=== PATIENT | male | born 1950 | race Two or more races ===

== ENCOUNTER 2024-11-01 08:30 | Emergency (ER) | payer MEDICARE, MEDICAID, SELFPAY ==
[2024-11-01 08:38] VITALS: BP 151/75; PULSE 67; RESP 16; TEMP 36.5; O2SAT 96; BMI 26.9
--- NOTE | 2024-11-01 09:22 | XR_ITS ---
Examination: CT abdomen and pelvis without contrast. Coronal 3-D reconstructions. Sagittal 2-D reconstructions. Date and time of exam:November 01, 2024 1011 hrs. Indication: Onset of right flank pain today CTDI: vol (mGy): 724 DLP: (mGycm): 473 Technique: Axial images of the abdomen have been obtained, 3 mm slice thickness Intravenous contrast material has not been administered. Low dose protocols were performed. One or more of the following dose reduction techniques were used; automated exposure control, adjustment of the mA and/or KV according to patient size, use of iterative reconstruction technique. Findings: Heart failure with enlarged cardiac contour vascular congestion pulmonary edema and large bilateral pleural effusions. No focal liver or splenic lesions Absent gallbladder No pancreatic mass Moderate bilateral renal parenchymal scar formation with perinephric stranding. No hydronephrosis or ureteral calculi. Normal appendix. No bowel obstruction Marked abnormal thickening of urinary bladder, differential would include cystitis, early bladder cancer not excluded Severe osteopenia. Impression: [id number] heart failure Moderate bilateral renal parenchymal scar formation Perinephric stranding consistent with urinary tract infection Marked abnormal thickening of the urinary bladder wall, differential would include cystitis, early bladder carcinoma not excluded, clinical correlation advised
--- NOTE | 2024-11-01 09:23 | XR_ITS ---
Examination: CT lumbar spine without intravenous contrast, without contrast. 2-D sagittal reconstructions. 2-D coronal reconstructions. 3-D reconstructions. Date and time of exam:November 01, 2024 1010 hrs. Indications: Onset back pain today CTDI: vol (mGy):19.3 DLP: (mGycm):617 Technique: Multiple 1.25 mm axial sections of the lumbar spine without intravenous contrast have been obtained. 2-D sagittal and coronal reconstructions have been obtained. 3-D reconstructions have been obtained. Low dose protocols were performed. One or more of the following dose reduction techniques were used; automated exposure control, adjustment of the mA and/or KV according to patient size, use of iterative reconstruction technique. Findings: Immediately Moderate to advanced degenerative disc disease L2-L3, L3-L4, L4-L5. Schmorl's node upper endplate L2 L5-S1 6 mm calcified central lumbar disc bulge L4-L5 4 mm central lumbar disc bulge with significant bilateral neural foraminal stenosis. L3-L4 3 mm central lumbar disc bulge L2-L3 no disc protrusion L1-L2 no disc protrusion Impression: Moderate to advanced degenerative disc disease L2-L3, L3-L4, L4-L5 L5-S1 6 mm calcified central lumbar disc bulge L4-L5 4 mm central lumbar disc bulge with advanced bilateral L4 ganglionic compression. L3-L4 3 mm central lumbar disc bulge
[2024-11-01 09:43] LABS: Collection Type, Urine Clean Catch
[2024-11-01 09:49] LABS: Basophils % (Auto) 1 % (0-2.5); Eosinophils # (Auto) 0.2 Thou/mm3 (0.0-0.5); Eosinophils % (Auto) 4 % (0-10); Hematocrit 32.1 % (41.0-53.0); Hemoglobin 10.7 g/dL (13.5-16.0); Immature Granulocytes % (Auto) 0 % (0-0); Immature Granulocytes Auto 0.01 Thou/mm3 (0.00-0.00); Lymphocytes # (Auto) 0.9 Thou/mm3 (1.0-4.8); Lymphocytes % (Auto) 17 % (10-50); Mean Corpuscular HGB Conc 33.3 g/dl (31.0-37.0); Mean Corpuscular Hemoglobin 31.1 pg (25.0-35.0); Mean Corpuscular Volume 93 fL (80-100); Monocytes # (Auto) 0.6 Thou/mm3 (0.0-0.8); Monocytes % (Auto) 11 % (0-12); Neutrophils # (Auto) 3.6 Thou/mm3 (1.8-7.7); Neutrophils % (Auto) 67 % (37-80); Nucleated Red Blood Cell % 0 /100 WBC (0); Platelet Count 153 Thou/mm3 (140-440); RDW Standard Deviation 48.6 fL (35.1-43.9); Red Blood Count 3.44 Miln/mm3 (4.50-5.90); White Blood Count 5.4 Thou/mm3 (3.8-10.6)
[2024-11-01 09:50] LABS: Bilirubin,Urine Negative (Negative); Blood,Urine 1+ (Negative); Clarity,Urine Clear (Clear/Hazy); Color,Urine Lt-Yellow (Lt Yel-Yel); Glucose, Urine 2+ (Negative); Hyaline Casts,Urine < 1 /hpf (0-1); Ketones,Urine Negative (Negative); Leukocyte Esterase,Urine Positive (Negative); Nitrite,Urine Negative (Negative); PH,Urine 8.5 (5.0-7.0); Protein,Urine 3+ (Neg - Trace); RBC,Urine 25 /hpf (0-3); Specific Gravity,Urine 1.009 (1.001-1.035); Squamous Epithelial Cell,Urine < 1 /hpf (0-5); Urobilinogen,Urine Negative mg/dL (0.0-1.0); WBC,Urine 25 /hpf (0-5)
[2024-11-01 09:52] LABS: Culture Indicated,Urine Yes
[2024-11-01 10:25] LABS: Alanine Aminotransferase 7 U/L (10-49); Albumin, Serum 4.2 gm/dL (3.4-4.8); Albumin/Globulin Ratio 1.4 (1.2-2.2); Anion Gap 10 (7-16); Aspartate Amino Transferase 13 U/L (0-34); BUN/Creatinine Ratio 4 Ratio (12-20); Bilirubin,Total 0.3 mg/dL (0.3-1.2); Blood Urea Nitrogen 21 mg/dL (9-23); Calcium 9.6 mg/dL (8.3-10.6); Calcium (Corrected) 9.6 mg/dL (8.5-10.1); Chloride 95 mMol/L (98-107); Estimated Creatinine Clearance 9.9 mL/min (>60); Globulin 3.1 gm/dL (2.3-3.5); Glucose 127 mg/dL (74-106); Osmolality,Calculated 278 (275-295); Potassium 3.7 mMol/L (3.4-5.1); Sodium 137 mMol/L (136-145); Total Protein 7.3 gm/dL (5.7-8.2); eGFR 9 See Note
[2024-11-01 10:37] LABS: Alkaline Phosphatase 73 U/L (46-116)
--- NOTE | 2024-11-01 11:36 | PD.EDABDPN ---
ED Abdominal Pain RME/HPI General Chief Complaint: Back Pain/Injury Stated complaint: NEEDS SCAN OF KIDNEYS Time seen by provider: 11/01/24 08:33 Arrival date/time: 11/01/24 08:30 RME / HPI RME / HPI narrative: This section includes all my notes and documentations, including HPI, PE, and ED course. Graham Mcdonald MD HPI: 74-year-old male here to be evaluated with several days of left-sided pain. He has trouble localizing the pain, left sided lower back versus left flank pain. Equivocal about radiation of the pain into the left leg. No numbness or tingling. No paralysis. No loss of control of bladder or bowels. No saddle numbness. No other complaints. ROS: All negative except as documented in HPI. Physical Exam: General: Alert and oriented. No acute distress. Eyes: Conjunctivae and lids clear. ENT: No nasal congestion. Neck: Supple. Heart: RRR. Lungs: No respiratory distress. Good air movement. No rhonchi, wheezing, rales. Abdomen: Soft and nontender. Normal bowel sounds. No distension. No rebound or guarding. Back: No CVA tenderness. Skin: Warm and dry. Neuro: Alert and oriented X 3. No peripheral motor deficits. I reviewed all diagnostic test results. My review of the lumbar spine CT report is: Moderate to advanced degenerative disc disease L2-L3, L3-L4, L4-L5. L5-S1 6 mm calcified central lumbar disc bulge. L4-L5 4 mm central lumbar disc bulge with advanced bilateral L4 ganglionic compression. L3-L4 3 mm central lumbar disc bulge. Blood tests remarkable for Cr 6.0, patient is a dialysis patient. UA showed leukocyte esterase on RBC and WBC. At this point, diagnoses include lumbar spinal stenosis and UTI. Prescribed ABX and pain medications and recommended more outpatient workup. Based on my best medical judgment, made decision no further evaluation or treatment indicated at this time. Patient understands and agrees to the discharge instructions customized and printed, see below. Discharge instructions from Dr. Mcdonald: 1. After evaluation, you have UTI (early kidney infection).? Take cefdinir to kill the germs causing the infection.? Increase oral fluid to flush it out.? Maintain clear urine.? If dark or yellow, increase oral fluid. 2. You also have severe disc bulgings and herniations. They are compressing the nerves causing your left sided low back pain. --Despite the pain, try to resume your normal chores and activities.? Because inactivity is terrible for this condition.? And activity won?t make your condition worse.? Use a cane of stick in your hand to help stand and walk.? --Tylenol with codeine and lidocaine patches as needed.? --When resting and sleeping, try position (with your knees to your chest and bending forward).? This can take some pressure off the nerves and help your pain. --Apply ice or heat if helpful. 3. See a private doctor (outside the ER) on 11/04/24 for recheck and further care. Ask to review all test results and official radiology reports, to make sure you receive all necessary follow-ups and monitoring, including your final urine culture results. For your back pain, ask to help you get more care not available here in the ER.? Such as MRI imaging.? Some choose to have surgery for your condition. But you need to have MRI imaging to confirm the diagnosis and assess the severity to get the best treatment. 4. Seek immediate medical care with fever, paralysis in your foot, losing control of your bladder or bowels, saddle numbness (anal numbness), or with any concerns.?? Graham Mcdonald MD Related Data Home Medications ?Medication ?Instructions ?Recorded ?Confirmed clonidine HCl 0.1 mg tablet 0.2 mg PO TID 02/26/19 12/19/20 cetirizine 10 mg tablet 10 mg PO QDAY 12/18/20 12/19/20 mirtazapine 30 mg tablet 30 mg PO HS 12/18/20 12/19/20 tobramycin 0.3 %-dexamethasone 0.1 1 drop ophthalmic (eye) 12/18/20 12/19/20 % eye drops,suspension (TobraDex) USEASDIRECTD Previous Rx's ?Medication ?Instructions ?Recorded acetazolamide 500 mg 500 mg PO Q12H #20 caps 03/19/19 capsule,extended release acetaminophen 300 mg-codeine 30 mg 2 tab PO Q8H PRN pain #20 tabs 11/01/24 tablet cefdinir 300 mg capsule 300 mg PO BID #14 caps 11/01/24 lidocaine 5 % topical patch 2 patch topical QDAY PRN pain #30 11/01/24 (Lidoderm) ea Allergies Allergy/AdvReac Type Severity Reaction Status Date / Time No Known Allergies Allergy Verified 11/01/24 08:34 Course Quality Measures none Orders Category Date Time Status CT abdomen pelvis wo con Stat Exams 11/01/24 09:[address] lumbar spine wo con Stat Exams 11/01/24 09:23 Completed CBC Stat Lab 11/01/24 09:40 Completed CMP [Comprehensive Metabolic Panel] Stat Lab 11/01/24 09:40 Completed Magnesium Stat Lab 11/01/24 09:40 Completed UA, C/S IF [Urinalysis, C/S if Indicated] Stat Lab 11/01/24 09:36 Completed Urine Culture Stat Lab 11/01/24 09:36 Completed Vital Signs Vital signs: Vital Signs Temperature 97.7 F 11/01/24 08:38 Pulse Rate 67 11/01/24 08:38 Respiratory Rate 16 11/01/24 08:38 Blood Pressure 151/75 H 11/01/24 08:38 Pulse Oximetry (%) 96 11/01/24 08:38 Oxygen Delivery Method Room Air 11/01/24 08:38 Abdominal Pain MDM Patient data External records reviewed:: [facility] previous records Clinical information provided by:: patient Social determinants that could affect healthcare access:: none Patient has the following chronic illnesses:: ESRD How is presenting disease/condition affected by chronic disease/condition?: uneffected by Evaluation data The following diagnostics were reviewed and interpreted by me:: lab results and radiology exam(s) Lab and/or radiology exams considered but not ordered:: None Interpretation Summary: Lumbar spinal stenosis and UTI Medications / Prescriptions Medications or Prescriptions considered but not ordered:: None Medication administrations:: None Consultations Consultation(s) initiated? (list below): No Diagnosis Differential diagnosis abdominal pain: acute appendicitis, calculus of kidney, constipation, diverticulitis, pancreatitis, small bowel obstruction and other (Lumbar spine fracture, lumbar sprain, spinal stenosis) Most likely diagnosis given after review of the tests above:: Lumbar spinal stenosis and UTI Admission Indicated Admission indicated?: not indicated Explain why admission is indicated or not indicated:: There is no indication for admission. Admission Request Was there a request for admission?: No Disposition Plan Disposition Plan: Discharge Discharge Attestation Discharge Attestation: The patient and all family members were given an opportunity to ask questions and understood the discharge instructions. Discharge instructions specifically effects, indications for sooner follow up or return to the emergency department, and the expected course of current diagnosis. Patient condition: Stable Discharge Plan Plan Patient Disposition: HOME (Self Care) Prescriptions/Referrals Prescriptions/Med Rec: New acetaminophen-codeine 300-30 mg tablet 2 tab PO Q8H MDD 6 PRN (Reason: pain) Qty: 20 0RF cefdinir 300 mg capsule 300 mg PO BID Qty: 14 0RF lidocaine [Lidoderm] 5 % adhesive patch,medicated 2 patch topical QDAY PRN (Reason: pain) Qty: 30 0RF Rx Instructions: leave on most painful area for up to 12 hrs No Action clonidine HCl 0.1 mg Tablet 0.2 mg PO TID Rx Instructions: systolic greater than 170 acetazolamide 500 mg capsule, extended release 500 mg PO Q12H Qty: 20 0RF cetirizine 10 mg Tablet 10 mg PO QDAY mirtazapine 30 mg Tablet 30 mg PO HS tobramycin-dexamethasone [TobraDex] 0.3-0.1 % drops,suspension 1 drop OPHTHALMIC USEASDIRECTD Rx Instructions: EVERY 3 DAYS Referrals: Henri Bangura MD [Primary Care Provider] - In 1 week Problem List Clinical Impression: UTI (urinary tract infection), Lumbar disc herniation Patient/Caregiver Discharge Instructions Discharge Activity: activity as tolerated Education Materials: ED Pyelonephritis, Male (Adult), ED Herniated Intervertebral Disk Additional Instructions: Discharge instructions from Dr. Mcdonald: 1. After evaluation, you have UTI (early kidney infection).? Take cefdinir to kill the germs causing the infection.? Increase oral fluid to flush it out.? Maintain clear urine.? If dark or yellow, increase oral fluid. 2. You also have severe disc bulgings and herniations. They are compressing the nerves causing your left sided low back pain. --Despite the pain, try to resume your normal chores and activities.? Because inactivity is terrible for this condition.? And activity won?t make your condition worse.? Use a cane of stick in your hand to help stand and walk.? --Tylenol with codeine and lidocaine patches as needed.? --When resting and sleeping, try position (with your knees to your chest and bending forward).? This can take some pressure off the nerves and help your pain. --Apply ice or heat if helpful. 3. See a private doctor (outside the ER) on 11/04/24 for recheck and further care. Ask to review all test results and official radiology reports, to make sure you receive all necessary follow-ups and monitoring, including your final urine culture results. For your back pain, ask to help you get more care not available here in the ER.? Such as MRI imaging.? Some choose to have surgery for your condition. But you need to have MRI imaging to confirm the diagnosis and assess the severity to get the best treatment. 4. Seek immediate medical care with fever, paralysis in your foot, losing control of your bladder or bowels, saddle numbness (anal numbness), or with any concerns.?? Instrucciones de reid del Dr. Mcdonald: 1. Despu?s de la evaluaci?n, tiene UTI (infecci?n renal temprana). [place] cefdinir para matar los g?rmenes que causan la infecci?n. Aumente la cantidad de l?quido oral para eliminarlo. Mantenga la orina carmita. Si es oscura o amarilla, aumente la cantidad de l?quido oral. 2. Tambi?n tiene hernias y protuberancias discales graves. Est?n comprimiendo los nervios que le causan dolor lumbar del lado damion. --A pesar del dolor, trate de reanudar inez tareas y actividades normales. Porque la inactividad es terrible para esta afecci?n. Y la actividad no empeorar? pace afecci?n. Use un carine?n en la mano para ayudarse a pararse y caminar. --Tylenol con parches de code?na y lidoca?na seg?n sea necesario. --Al descansar y dormir, intente la posici?n (con las rodillas en el pecho e inclin?ndose hacia adelante). [place] puede aliviar un poco la presi?n sobre los nervios y aliviar el dolor. --Aplique hielo o calor si es ?til. 3. Visite a un m?dico privado (fuera de la lam de emergencias) el 04/11/24 para un nuevo control y m?s atenci?n. Pida revisar todos los resultados de las pruebas y los informes oficiales de radiolog?a, para asegurarse de recibir todos los seguimientos y monitoreo necesarios, incluidos los resultados finales de pace cultivo de orina. Para pace dolor de espalda, pida ayuda para obtener m?s atenci?n que no est? disponible aqu? en la lam de emergencias. Ashley im?genes de resonancia magn?senthil. Algunas personas optan por hacerse henry cirug?a para pace afecci?n. Ivonne necesita hacerse henry imagen de resonancia magn?senthil para confirmar el diagn?stico y evaluar la gravedad para obtener el mejor tratamiento. 4. Busque atenci?n m?dica inmediata si tiene fiebre, par?lisis en el pie, p?rdida de control de la vejiga o los intestinos, entumecimiento en forma de silla de montar (entumecimiento anal) o si tiene alguna inquietud. Print Language: Tajik Stand Alone Forms: [employer] Info., Patient Portal Info Letter
== END 2024-11-01 11:50 | disposition home or self-care (01) ==
PROVIDERS: Emergency Provider Emergency Medicine; PCP Family Medicine
DX: N39.0 Urinary tract infection, site not specified (principal); M51.26 Other intervertebral disc displacement, lumbar region; M51.362 Other intervertebral disc degeneration, lumbar region with discogenic back pain and lower extremity pain; M51.372 Other intervertebral disc degeneration, lumbosacral region with discogenic back pain and lower extremity pain; M48.061 Spinal stenosis, lumbar region without neurogenic claudication; G95.29 Other cord compression; N18.6 End stage renal disease; Z99.2 Dependence on renal dialysis
CPT/HCPCS: 36415; 72131; 74176; 80053; 81001; 83735; 85025; 87086; 99284

== ENCOUNTER 2024-11-30 09:20 | Emergency (ER) | payer MEDICARE, MEDICAID, SELFPAY ==
[2024-11-30 09:21] VITALS: BMI 25.4
[2024-11-30 09:54] VITALS: BP 201/104; PULSE 79; RESP 19; TEMP 36.7; O2SAT 98
[2024-11-30 09:56] VITALS: BMI 25.4
--- NOTE | 2024-11-30 10:01 | XR_ITS ---
Examination: Abdomen AP single view Technique: AP portable supine abdomen, single view Exam date and time: November 30, 2024 1038 hours INDICATIONS: Constipation beginning 8 days ago. FINDINGS: Large amounts of stool throughout the colon No obstruction. No free air. Moderate to advanced bilateral hip osteoarthritis IMPRESSION: Large amounts of stool throughout the colon
--- NOTE | 2024-11-30 10:02 | PD.EDRME ---
Rapid Medical Screening Exam RME Arrival date/time: 11/30/24 09:20 74-year-old male with a history of an abdominal hernia repair, type 2 diabetes on dialysis, hypertension presents to the emergency room with a chief complaint of generalized 7 out of 10 abdominal pain, and not having any bowel movements for the last 8 days. I have greeted and performed a focused initial assessment of this patient. A comprehensive ED assessment and evaluation of the patient, analysis of all test results, and completion of the medical decision making process will be conducted by additional ED providers. Chief Complaint: Abdominal Pain Time Seen by Provider: 11/30/24 09:44 Vital signs: Vital Signs Temperature 98.0 F 11/30/24 09:54 Pulse Rate 79 11/30/24 09:54 Respiratory Rate 19 11/30/24 09:54 Blood Pressure 201/104 H 11/30/24 09:54 Pulse Oximetry (%) 98 11/30/24 09:54 Oxygen Delivery Method Room Air 11/30/24 09:54 Vital signs reviewed by provider: Yes
[2024-11-30 10:29] LABS: Basophils # (Auto) 0.1 Thou/mm3 (0.0-0.2); Basophils % (Auto) 1 % (0-2.5); Eosinophils # (Auto) 0.4 Thou/mm3 (0.0-0.5); Eosinophils % (Auto) 7 % (0-10); Hematocrit 37.2 % (41.0-53.0); Hemoglobin 12.7 g/dL (13.5-16.0); Immature Granulocytes % (Auto) 0 % (0-0); Immature Granulocytes Auto 0.01 Thou/mm3 (0.00-0.00); Lymphocytes # (Auto) 0.9 Thou/mm3 (1.0-4.8); Lymphocytes % (Auto) 15 % (10-50); Mean Corpuscular HGB Conc 34.1 g/dl (31.0-37.0); Mean Corpuscular Hemoglobin 31.1 pg (25.0-35.0); Mean Corpuscular Volume 91 fL (80-100); Monocytes # (Auto) 0.6 Thou/mm3 (0.0-0.8); Monocytes % (Auto) 10 % (0-12); Neutrophils # (Auto) 4.1 Thou/mm3 (1.8-7.7); Neutrophils % (Auto) 67 % (37-80); Nucleated Red Blood Cell % 0 /100 WBC (0); Platelet Count 173 Thou/mm3 (140-440); Red Blood Count 4.08 Miln/mm3 (4.50-5.90); White Blood Count 6.1 Thou/mm3 (3.8-10.6)
[2024-11-30 10:43] LABS: Collection Type, Urine Clean Catch
[2024-11-30 10:44] LABS: Partial Thromboplastin Time 22.8 Seconds (22.0-36.0); Prothrombin Time 10.8 Seconds (9.0-12.2)
[2024-11-30 10:46] LABS: Alanine Aminotransferase 39 U/L (10-49); Albumin, Serum 4.4 gm/dL (3.4-4.8); Albumin/Globulin Ratio 1.3 (1.2-2.2); Alkaline Phosphatase 152 U/L (46-116); Anion Gap 10 (7-16); Aspartate Amino Transferase 26 U/L (0-34); BUN/Creatinine Ratio 4 Ratio (12-20); Bilirubin,Total 0.3 mg/dL (0.3-1.2); Blood Urea Nitrogen 28 mg/dL (9-23); Calcium 10.1 mg/dL (8.3-10.6); Calcium (Corrected) 10.1 mg/dL (8.5-10.1); Carbon Dioxide 30.5 mMol/L (20.0-31.0); Chloride 93 mMol/L (98-107); Creatinine (Component) 7.7 mg/dL (0.6-1.3); Estimated Creatinine Clearance 7.7 mL/min (>60); Globulin 3.5 gm/dL (2.3-3.5); Glucose 133 mg/dL (74-106); Lipase 36 U/L (12-53); Osmolality,Calculated 273 (275-295); Potassium 4.3 mMol/L (3.4-5.1); Sodium 133 mMol/L (136-145); Total Protein 7.9 gm/dL (5.7-8.2); eGFR 7 See Note
[2024-11-30 10:47] LABS: Bilirubin,Urine Negative (Negative); Blood,Urine 1+ (Negative); Clarity,Urine Clear (Clear/Hazy); Color,Urine Lt-Yellow (Lt Yel-Yel); Glucose, Urine 2+ (Negative); Ketones,Urine Negative (Negative); Leukocyte Esterase,Urine Positive (Negative); Nitrite,Urine Negative (Negative); Protein,Urine 3+ (Neg - Trace); RBC,Urine 16 /hpf (0-3); Specific Gravity,Urine 1.007 (1.001-1.035); Squamous Epithelial Cell,Urine < 1 /hpf (0-5); Urobilinogen,Urine Negative mg/dL (0.0-1.0); WBC,Urine 21 /hpf (0-5)
--- NOTE | 2024-11-30 16:14 | PD.EDADULT ---
ED General RME/HPI General Chief complaint: Abdominal Pain Stated complaint: NO BM 8 DAYS, ABD PAIN, WANTS X-RAY Time Seen by Provider: 11/30/24 09:44 Arrival date/time: 11/30/24 09:20 CC: Constipation HPI ongoing for the past 8 days patient is a dialysis patient who denies any fever chills shortness of breath or difficulty breathing. Tried, red pills for 2 days which did not work. Did not try any enemas. 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 I have greeted and performed a focused initial assessment of this patient. A comprehensive ED assessment and evaluation of the patient, analysis of all test results, and completion of the medical decision making process will be conducted by additional ED providers. Related Data Home Medications ?Medication ?Instructions ?Recorded ?Confirmed clonidine HCl 0.1 mg tablet 0.2 mg PO TID 02/26/19 12/19/20 cetirizine 10 mg tablet 10 mg PO QDAY 12/18/20 12/19/20 mirtazapine 30 mg tablet 30 mg PO HS 12/18/20 12/19/20 tobramycin 0.3 %-dexamethasone 0.1 1 drop ophthalmic (eye) 12/18/20 12/19/20 % eye drops,suspension (TobraDex) USEASDIRECTD Previous Rx's ?Medication ?Instructions ?Recorded acetazolamide 500 mg 500 mg PO Q12H #20 caps 03/19/19 capsule,extended release acetaminophen 300 mg-codeine 30 mg 2 tab PO Q8H PRN pain #20 tabs 11/01/24 tablet cefdinir 300 mg capsule 300 mg PO BID #14 caps 11/01/24 lidocaine 5 % topical patch 2 patch topical QDAY PRN pain #30 11/01/24 (Lidoderm) ea polyethylene glycol 3350 17 4 g PO QDAY #238 grams 11/30/24 gram/dose oral powder (Miralax) Allergies Allergy/AdvReac Type Severity Reaction Status Date / Time No Known Allergies Allergy Verified 11/30/24 09:24 Review of Systems Review of Systems Narrative Review of Systems: GEN: No fever, no chills, no weight loss EYES: No discharge, no visual changes, no pain HEENT: No ear pain, no congestion, no sore throat PULM: No shortness of breath, no cough, no congestion CV: No chest pain, no dyspnea on exertion, no palpitations GI: No nausea, no vomiting, no diarrhea, no pain, + constipation : No frequency, no urgency, no dysuria MUSC/SKEL: No joint pain, no back pain SKIN: No rash PSYCH: No hallucinations, no depression HEME/LYMPH: No easy bleeding or bruising tendencies NEURO: No weakness, no headache Past Medical History Past Medical History NEUROLOGIC: Negative Neurological Disorders or Seizures CARDIAC: Positive Cardiac Disorders and Hypertension; Negative Hypercholesterolemia or Congestive Heart Failure RESPIRATORY: Negative Chronic Obstructive Pulmonary Disease (COPD) GASTROINTESTINAL: Negative Gastrointestinal Disorders or Hepatitis GENITOURINARY: Positive Renal Disease and Dialysis MUSCULOSKELETAL: Positive Musculoskeletal Disorders and Arthritis ENT: Positive Cataracts ENDOCRINE: Positive Endocrine Disorders and Diabetes Mellitus Type 2; Negative Diabetes Mellitus Type 1 HEMATOLOGIC: Negative Anemia or Clotting Problems OTHER HISTORY: Positive Falls; Negative Blood Transfusions, Blood Transfusion Reaction, Anesthesia Reactions, MRSA, Chicken Pox or Cancer Family History FAMILY HISTORY: Negative Family Cardiac Disorders Surgical History SURGICAL: Positive Arthroscopy; Negative Cardiac Surgery, Endocrine Surgery or Vasectomy Social History SMOKING STATUS: Never smoker SUBSTANCE USE: does not use ED Exam Narrative Physical exam: [General: Not in any acute distress Head normocephalic HEENT: Within acceptable limits Neck is supple nontender Chest equal chest rise nontender to palpation Respiratory: Clear to auscultation no wheezes crackles or rubs CV: Rate rhythm is regular no murmurs rubs or clicks Abdomen is soft nontender no masses positive bowel sounds all 4 quadrants Back: No CVA tenderness no spinous process tenderness from cervical spine thoracic and lumbar spine Skin: Intact no petechiae rash induration ulceration or crepitus Extremities: Moving all extremity against resistance cap refill less than 2 seconds neurosensory intact Neuro: Awake alert oriented x3 Glascow coma 15 no focal deficits] Course Quality Measures none Orders Category Date Time Status XR abdomen 1V Stat Exams 11/30/24 10:01 Completed CBC Stat Lab 11/30/24 10:17 Completed CMP [Comprehensive Metabolic Panel] Stat Lab 11/30/24 10:17 Completed Lipase Stat Lab 11/30/24 10:17 Completed PT [Prothrombin Time with INR] Stat Lab 11/30/24 10:17 Completed PTT [Partial Thromboplastin Time] Stat Lab 11/30/24 10:17 Completed UA [Urinalysis] Stat Lab 11/30/24 10:20 Completed Urine Culture Stat Lab 11/30/24 10:20 Received Vital Signs Vital signs: Vital Signs Temperature 98.0 F 11/30/24 09:54 Pulse Rate 79 11/30/24 09:54 Respiratory Rate 19 11/30/24 09:54 Blood Pressure 201/104 H 11/30/24 09:54 Pulse Oximetry (%) 98 11/30/24 09:54 Oxygen Delivery Method Room Air 11/30/24 09:54 [facility] Patient data External records reviewed:: [facility] previous records Clinical information provided by:: patient and spouse Social determinants that could affect healthcare access:: none Patient has the following chronic illnesses:: ESRD dialysis How is presenting disease/condition affected by chronic disease/condition?: uneffected by Evaluation data The following diagnostics were reviewed and interpreted by me:: lab results and radiology exam(s) Lab and/or radiology exams considered but not ordered:: CBC shows a WBC of 6.1 H&H of 12.7 and 37.2 no thrombocytopenia CMP shows a sodium 133 BUN of 28 creatinine of 7.7 glucose of 133 no transaminitis or T. bili elevation Urine is negative for acute UTI Single view abdomen shows moderate amount of stool. Interpretation Summary: Constipation without obstipation Medications Medications considered but not ordered:: None Medication administrations:: None Consultations Consultation(s) initiated? (list below): No Diagnosis Differential Diagnosis ED Complaint MDM: Constipation obstipation ileus Most likely diagnosis given after review of the tests above:: Constipation Admission Indicated Admission indicated?: not indicated Explain why admission is indicated or not indicated:: Stable for outpatient follow-up Admission Request Was there a request for admission?: No Disposition Plan Disposition Plan: Discharge Discharge Attestation Discharge Attestation: The patient and all family members were given an opportunity to ask questions and understood the discharge instructions. Discharge instructions specifically effects, indications for sooner follow up or return to the emergency department, and the expected course of current diagnosis. Patient condition: Stable Medical Decision Making Differential Diagnosis Differential Diagnosis: Constipation obstipation ileus Lab Data 11/30/24 10:17 11/30/24 10:17 Labs: Lab Results 11/30/24 11/30/24 Range/Units 10:17 10:20 WBC 6.1 (3.8-10.6) Thou/mm3 RBC 4.08 L (4.50-5.90) Miln/mm3 Hgb 12.7 L (13.5-16.0) g/dL Hct 37.2 L (41.0-53.0) % MCV 91 (80-100) fL MCH 31.1 (25.0-35.0) pg MCHC 34.1 (31.0-37.0) g/dl RDW Std Deviation 48.0 H (35.1-43.9) fL Plt Count 173 (140-440) Thou/mm3 Neut % (Auto) 67 (37-80) % Lymph % (Auto) 15 (10-50) % Sutter % (Auto) 10 (0-12) % Eos % (Auto) 7 (0-10) % Baso % (Auto) 1 (0-2.5) % Neut # (Auto) 4.1 (1.8-7.7) Thou/mm3 Lymph # (Auto) 0.9 L (1.0-4.8) Thou/mm3 Sutter # (Auto) 0.6 (0.0-0.8) Thou/mm3 Eos # (Auto) 0.4 (0.0-0.5) Thou/mm3 Baso # (Auto) 0.1 (0.0-0.2) Thou/mm3 Immature Gran # (Auto) 0.01 H (0.00-0.00) Thou/mm3 Absolute Nucleated RBC 0.00 (0.00-0.00) Thou/mm3 Immature Gran % 0 (0-0) % Nucleated RBC % 0 (0) /100 WBC PT 10.8 (9.0-12.2) Seconds INR 1.0 (0.9-1.3) APTT 22.8 (22.0-36.0) Seconds Sodium 133 L (136-145) mMol/L Potassium 4.3 (3.4-5.1) mMol/L Chloride 93 L (98-107) mMol/L Carbon Dioxide 30.5 (20.0-31.0) mMol/L Anion Gap 10 (7-16) BUN 28 H (9-23) mg/dL Creatinine 7.7 H* (0.6-1.3) mg/dL Estim Creat Clear Calc 7.7 L (>60) mL/min eGFR 7 L* (60 - ) See Note BUN/Creatinine Ratio 4 L (12-20) Ratio Glucose 133 H (74-106) mg/dL Calculated Osmolality 273 L (275-295) Calcium 10.1 (8.3-10.6) mg/dL Corrected Calcium 10.1 (8.5-10.1) mg/dL Total Bilirubin 0.3 (0.3-1.2) mg/dL AST 26 (0-34) U/L ALT 39 (10-49) U/L Alkaline Phosphatase 152 H (46-116) U/L Total Protein 7.9 (5.7-8.2) gm/dL Albumin 4.4 (3.4-4.8) gm/dL Globulin 3.5 (2.3-3.5) gm/dL Albumin/Globulin Ratio 1.3 (1.2-2.2) Lipase 36 (12-53) U/L Ur Collection Type Clean Catch Urine Color Lt-Yellow (Lt Yel-Yel) Urine Clarity Clear (Clear/Hazy) Urine pH 8.0 H (5.0-7.0) Ur Specific [place] 1.007 (1.001-1.035) Urine Protein 3+ A (Neg - Trace) Urine Glucose (UA) 2+ A (Negative) Urine Ketones Negative (Negative) Urine Blood 1+ A (Negative) Urine Nitrite Negative (Negative) Urine Bilirubin Negative (Negative) Urine Urobilinogen (Auto) Negative (0.0-1.0) mg/dL Ur Leukocyte Esterase Positive (Negative) Urine RBC 16 H (0-3) /hpf Urine WBC 21 H (0-5) /hpf Ur Squamous Epith Cells < 1 (0-5) /hpf Urine Bacteria None (None) Discharge Plan Plan Patient Disposition: HOME (Self Care) Patient condition on transfer: Stable Prescriptions/Referrals Prescriptions/Med Rec: New polyethylene glycol 3350 [Miralax] 17 gram/dose powder 4 g PO QDAY Qty: 238 0RF No Action clonidine HCl 0.1 mg Tablet 0.2 mg PO TID Rx Instructions: systolic greater than 170 acetazolamide 500 mg capsule, extended release 500 mg PO Q12H Qty: 20 0RF cetirizine 10 mg Tablet 10 mg PO QDAY mirtazapine 30 mg Tablet 30 mg PO HS tobramycin-dexamethasone [TobraDex] 0.3-0.1 % drops,suspension 1 drop OPHTHALMIC USEASDIRECTD Rx Instructions: EVERY 3 DAYS acetaminophen-codeine 300-30 mg tablet 2 tab PO Q8H MDD 6 PRN (Reason: pain) Qty: 20 0RF cefdinir 300 mg capsule 300 mg PO BID Qty: 14 0RF lidocaine [Lidoderm] 5 % adhesive patch,medicated 2 patch topical QDAY PRN (Reason: pain) Qty: 30 0RF Rx Instructions: leave on most painful area for up to 12 hrs Referrals: René Sarah MD [Primary Care Provider] - In 1 week Problem List Clinical Impression: Constipation Patient/Caregiver Discharge Instructions Education Materials: Eating a High-Fiber Diet, ED Constipation (Adult) Additional Instructions: Try a Fleet seminoma. Follow-up with your primary care doctor or your laboratory sampler. If there is worsening of symptoms return the emergency room medially for further evaluation. Print Language: [place]arag[place] Stand Alone Forms: Kiley Award Info., Patient Portal Info Letter PA/JEFFERY Supervising Physician PA/JEFFERY Supervising Physician: Cheko Rose ENP
== END 2024-11-30 16:56 | disposition home or self-care (01) ==
PROVIDERS: Nurse Practitioner Family; Emergency Provider Emergency Medicine; PCP Internal Medicine
DX: K59.00 Constipation, unspecified (principal)
CPT/HCPCS: 36415; 74018; 80053; 81001; 83690; 85025; 85610; 85730; 87086; 99283

== ENCOUNTER 2025-06-10 11:22 | Emergency (ER) | payer MEDICARE, SELFPAY ==
[2025-06-10] VITALS (9 sets, daily range): BP systolic 77–158; BP diastolic 51–87; PULSE 69–79; RESP 16–20; TEMP 36–37.1; O2SAT 91–100; BMI 23.4; BMI 31.9
--- NOTE | 2025-06-10 12:54 | PD.EDEXREM ---
ED Extremity Problem RME/HPI General Chief complaint: Extremity Problem,Nontraumatic Stated complaint: R FOOT PAIN WITH DISCOLORATION Time Seen by Provider: 06/10/25 11:43 Arrival date/time: 06/10/25 11:22 Limitations: no limitations RME / HPI RME / HPI Narrative: DR. RUBALCAVA MAIN ED EVALUATION: 75-year-old male with history of end-stage renal disease on hemodialysis (MWF with winery worker Dr. Carrillo? in [place]) and hypertension who presents to the Emergency Department with bilateral foot pain, right greater than left, ongoing for 8 days. He reports associated nausea and vomiting but denies fever, chills, abdominal pain, chest pain, or generalized weakness. He completed dialysis yesterday. Accompanied by his . Related Data Home Medications ?Medication ?Instructions ?Recorded ?Confirmed clonidine HCl 0.1 mg tablet 0.2 mg PO TID 02/26/19 12/19/20 cetirizine 10 mg tablet 10 mg PO QDAY 12/18/20 12/19/20 mirtazapine 30 mg tablet 30 mg PO HS 12/18/20 12/19/20 tobramycin 0.3 %-dexamethasone 0.1 1 drop ophthalmic (eye) 12/18/20 12/19/20 % eye drops,suspension (TobraDex) USEASDIRECTD Previous Rx's ?Medication ?Instructions ?Recorded acetazolamide 500 mg 500 mg PO Q12H #20 caps 03/19/19 capsule,extended release acetaminophen 300 mg-codeine 30 mg 2 tab PO Q8H PRN pain #20 tabs 11/01/24 tablet cefdinir 300 mg capsule 300 mg PO BID #14 caps 11/01/24 lidocaine 5 % topical patch 2 patch topical QDAY PRN pain #30 11/01/24 (Lidoderm) ea polyethylene glycol 3350 17 4 g PO QDAY #238 grams 11/30/24 gram/dose oral powder (Miralax) Allergies Allergy/AdvReac Type Severity Reaction Status Date / Time No Known Allergies Allergy Verified 06/10/25 11:27 Review of Systems Review of Systems Systems Reviewed: All systems reviewed, normal except as documented Past Medical History Past Medical History CARDIAC: Positive Cardiac Disorders, Myocardial Infarction (x2 6 yrs ago) and Hypertension GENITOURINARY: Positive Renal Disease and Dialysis MUSCULOSKELETAL: Positive Musculoskeletal Disorders, Arthritis and Fractures (clavicle fracture , shoulder left) ENT: Positive Cataracts and Glaucoma ENDOCRINE: Positive Endocrine Disorders and Diabetes Mellitus Type 2 OTHER HISTORY: Positive Falls Surgical History SURGICAL: Positive Arthroscopy Social History SMOKING STATUS: Never smoker SUBSTANCE USE: does not use ALCOHOL: Never ED Exam General Limitations: Present no limitations General appearance: Present alert and in no apparent distress Head Head exam: Present atraumatic, normocephalic and normal inspection Eye Eye exam: Present normal appearance, PERRL and EOMI ENT ENT exam: Present normal exam, normal oropharynx and mucous membranes moist Neck Neck exam: Present normal inspection, full ROM and trachea midline Chest Chest inspection: Present normal inspection and symmetric chest wall rise Respiratory Respiratory exam: Present normal lung sounds bilaterally Cardiovascular Cardiovascular exam: Present regular rate, normal rhythm and normal heart sounds Abdominal Exam Abdominal exam: Present soft; Absent distention, tenderness, guarding, rebound or rigidity Extremities Exam Extremities exam: Present other (Tenderness noted in both feet, most pronounced at the right 5th digit. Right foot shows more discoloration compared to the right. No palpable pulses in the lower extremities, but Doppler was able to detect popliteal flow bilaterally.) Back Exam Back exam: Present normal inspection and full ROM Neurological Exam Neurological exam: Present alert, oriented X3 and CN II-XII intact Psychiatric Psychiatric exam: Present normal affect and normal mood Skin Skin exam: Present warm and dry Course Quality Measures none Orders Category Date Time Status CT Screening NOW Care 06/10/25 13:25 Completed Referral - Core Piler Stat Cons 06/10/25 16:[address] angio LE RT Stat Exams 06/10/25 13:24 Completed XR foot comp RT min 3V Stat Exams 06/10/25 13:26 Completed CBC Stat Lab 06/10/25 13:25 Completed CMP [Comprehensive Metabolic Panel] Stat Lab 06/10/25 13:25 Completed CRP [C-Reactive Protein] Stat Lab 06/10/25 13:25 Completed ESR [Sed Rate (ESR)] Stat Lab 06/10/25 13:25 Completed Hepatitis Acute Panel Stat Lab 06/10/25 13:25 Completed PT [Prothrombin Time with INR] Stat Lab 06/10/25 13:25 Completed Ringers Lactated 500 ml [Lactated Ringers] 500 ml Med 06/10/25 13:27 Discontinued IV 500 mls/hr fentaNYL INJ [Sublimaze Inj] Med 06/10/25 17:04 Discontinued 50 mcg IVP X1 ONE Vital Signs Vital signs: Vital Signs Temperature 98.8 F 06/10/25 12:08 Pulse Rate 69 06/10/25 12:08 Respiratory Rate 18 06/10/25 12:08 Blood Pressure 77/51 L 06/10/25 12:08 Pulse Oximetry (%) 92 L 06/10/25 12:08 Oxygen Delivery Method Room Air 06/10/25 12:08 Extremity Problem MDM Narrative MDM Narrative:: Patient is a 74-year-old male with medical history notable for ESRD, diabetes, hypertension that send emergency primary concerns for right foot pain. Vital signs and exam as listed. Concern for ischemic limb, osteomyelitis, diabetic neuropathy among others. Patient took his blood pressure medication earlier today, presenting with soft blood pressure was 77/51. Patient had dialysis yesterday. Ordered labs, CT angio of the right lower extremity as well as x-ray of the right foot. Labs without leukocytosis, no left shift. Patient hemoglobin is 9.9, patient range is in hemoglobin from 10-12. Patient without any significant metabolic disturbances patient does have a transaminitis, AST 402, ALT 506, alk phos 245, CRP 1.8. Patient does not have any abdominal pain. His pain is all in his right foot. Foot x-ray with severe osteopenia. CT angio of the lower extremity with 90% 90% stenosis right popliteal artery Severe calcification trifurcation arteries below the knee, occlusion of the anterior tibial and main continuation trunk and posterior tibial arteries on the right in the mid to distal portions Initiated transfer for vascular surgery. Discussed case with Dr Diez [facility] surgeon [facility]. No emergent surgical intervention req'd at this time. Recommends that patient call his office to make an appt to be seen this week. Patient updated at bedside. Patient remained HD stable, symptoms well controlled NAD. Alondra Rodrigez am scribing for and in the presence of Dr. Rubalcava. 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 in [place]) and hypertension How is presenting disease/condition affected by chronic disease/condition?: exacerbated by Evaluation data The following diagnostics were reviewed and interpreted by me:: lab results and radiology exam(s) Lab and/or radiology exams considered but not ordered:: none Interpretation Summary: See MDM narrative above. RADIOLOGY Procedure(s): XR foot comp RT min 3V Accession Number(s): [id number] cc: Henri Bangura MD; Bruce Cordon MD; Sheila Rubalcava MD~ Examination: Foot, right, 3 views Technique: AP, oblique, lateral views foot, 3 views Date and time of exam: June 10, 2025, 1344 hrs. Indications: Redness pain and swelling and discoloration this week Findings: Severe osteopenia Soft tissue vascular calcification No jose carlos cortical bone destruction No foreign body Impression: Severe osteopenia No jose carlos cortical bone destruction Dictated By: Bruce Cordon MD Procedure(s): CT angio LE RT Accession Number(s): [id number] cc: Henri Bangura MD; Bruce Cordon MD; Sheila Rubalcava MD~ Examination: CTA right lower extremity with intravenous contrast 2-D reconstructions 3-D reconstructions, vascular Date and time of exam: June 10, 2025, 1458 hrs. Indications: Right foot pain and discoloration beginning 8 days ago CTDI: vol (mGy) 4.40 DLP: (mGycm) 490 Technique: Multiple axial images right lower extremity obtained. 2-D sagittal and coronal reconstructions. 3-D angiographic renderings, 3-D volume renderings, 3D post processing, vascular maximum intensity projections obtained. Contrast administered is 100 cc Isovue-370. Low dose protocols were performed. One or more of the following dose reduction techniques were used; automated exposure control, adjustment of the mA and/or KV according to patient size, use of iterative reconstruction technique. Findings: Right external iliac right common femoral artery calcified but intact Right superficial femoral artery demonstrates heavy calcification 50% stenosis in its midportion axial image 266 Heavy calcification right popliteal artery with 90% stenosis axial image 353 Heavy calcification anterior tibial posterior tibial main continuation trunk on the right Occlusion of the proximal right anterior tibial artery, occlusion of the main continuation trunk and occlusion of the right posterior tibial artery in their mid and distal portions Impression: 90% stenosis right popliteal artery Severe calcification trifurcation arteries below the knee, occlusion of the anterior tibial and main continuation trunk and posterior tibial arteries on the right in the mid to distal portions Dictated By: Bruce Cordon MD Medications / Prescriptions Medications or Prescriptions considered but not ordered:: none Medication administrations:: Medication Administration History Discontinued Medications Fentanyl Citrate (Fentanyl Cit Inj 50 Mcg/Ml Amp 2ml) 50 mcg IVP X1 ONE Stop: 06/10/25 17:05 Last Admin: 06/10/25 17:22 Dose: 50 mcg Documented By: BY Lactated Ringer's (Lactated Ringers) 500 mls @ 500 mls/hr IV .Q1H ONE Stop: 06/10/25 14:26 Last Infusion: 06/10/25 14:46 Dose: Infused Documented By: Admin: 06/10/25 13:34 Dose: 500 mls/hr Documented By: BY see above if any Consultations Consultation(s) initiated? (list below): Yes Diagnosis Extremity Problem Differential Diagnosis: other (Critical limb ischemia, peripheral arterial disease, and cellulitis/infection.) Most likely diagnosis given after review of the tests above:: Arterial stenosis Popliteal artery stenosis Foot pain, right Transaminitis Admission Indicated Admission indicated?: not indicated Admission Request Was there a request for admission?: No Disposition Plan Disposition Plan: Discharge Discharge Attestation Discharge Attestation: The patient and all family members were given an opportunity to ask questions and understood the discharge instructions. Discharge instructions specifically effects, indications for sooner follow up or return to the emergency department, and the expected course of current diagnosis. Patient condition: Stable Critical Care Time Critical Care Time Critical Care Time: Yes Total Critical Care Time (min.): 60 Attestation: Due to a high probability of clinically significant, life threatening deterioration, the patient required my highest level of preparedness to intervene emergently and I personally spent this critical care time directly and personally managing the patient. This critical care time included obtaining a history; examining the patient; pulse oximetry; ordering and review of studies; arranging urgent treatment with development of a management plan; evaluation of patient's response to treatment; frequent reassessment; and, discussions with other providers. This critical care time was performed to assess and manage the high probability of imminent, life-threatening deterioration that could result in multi-organ failure. It was exclusive of separately billable procedures and treating other patients and teaching time. Please see MDM section and the rest of the note for further information on patient assessment and treatment. Discharge Plan Plan Patient Disposition: HOME (Self Care) Prescriptions/Referrals Prescriptions/Med Rec: No Action clonidine HCl 0.1 mg Tablet 0.2 mg PO TID Rx Instructions: systolic greater than 170 acetazolamide 500 mg capsule, extended release 500 mg PO Q12H Qty: 20 0RF cetirizine 10 mg Tablet 10 mg PO QDAY mirtazapine 30 mg Tablet 30 mg PO HS tobramycin-dexamethasone [TobraDex] 0.3-0.1 % drops,suspension 1 drop OPHTHALMIC USEASDIRECTD Rx Instructions: EVERY 3 DAYS acetaminophen-codeine 300-30 mg tablet 2 tab PO Q8H MDD 6 PRN (Reason: pain) Qty: 20 0RF cefdinir 300 mg capsule 300 mg PO BID Qty: 14 0RF lidocaine [Lidoderm] 5 % adhesive patch,medicated 2 patch topical QDAY PRN (Reason: pain) Qty: 30 0RF Rx Instructions: leave on most painful area for up to 12 hrs polyethylene glycol 3350 [Miralax] 17 gram/dose powder 4 g PO QDAY Qty: 238 0RF Referrals: Noe Diez MD [Physician, Vascular Surgery] - In 1 week Referral Note: Call office Thursday. Per Dr. Diez, f/u will need to be this week Henri Bangura MD [Primary Care Provider, [facility]] - In 1 week Problem List Clinical Impression: Arterial stenosis, Popliteal artery stenosis, Foot pain, right, Transaminitis Patient/Caregiver Discharge Instructions Other Activity Instructions:: Tiene henry oclusi?n arterial importante en la pierna derecha. Consultamos con el Dr. Diez, cirujano vascular de [facility], y desea verlo en pace consultorio la pr?xima semana para hablar sobre pace theron. Regrese de inmediato si el dolor empeora, presenta disminuci?n de la sensibilidad en la pierna, empeoramiento de los cambios en la piel o cualquier otro s?ntoma preocupante. Hacer genie con el Dr. Diez. Por favor llamar el lunes para hacer henry genie. Puede hacer genie en cualquiera de inez oficinas: Dr. Diez [address] [place] [address] [address] [place] [address] You have a significant occlusion of the artery of your right leg. We consulted Dr. Diez Vascular surgeon at [facility] and he wants to see you in his office next week to discuss your case. Return immediately if your pain worsens, you have decreased sensation of your leg, worsening skin changes or any other symptom of concern Education Materials: Diabetes PAD Print Language: Irish Stand Alone Forms: [employer] Award Info., Patient Portal Info Letter
--- NOTE | 2025-06-10 13:24 | XR_ITS ---
Examination: CTA right lower extremity with intravenous contrast 2-D reconstructions 3-D reconstructions, vascular Date and time of exam: June 10, 2025, 1458 hrs. Indications: Right foot pain and discoloration beginning 8 days ago CTDI: vol (mGy) 4.40 DLP: (mGycm) 490 Technique: Multiple axial images right lower extremity obtained. 2-D sagittal and coronal reconstructions. 3-D angiographic renderings, 3-D volume renderings, 3D post processing, vascular maximum intensity projections obtained. Contrast administered is 100 cc Isovue-370. Low dose protocols were performed. One or more of the following dose reduction techniques were used; automated exposure control, adjustment of the mA and/or KV according to patient size, use of iterative reconstruction technique. Findings: Right external iliac right common femoral artery calcified but intact Right superficial femoral artery demonstrates heavy calcification 50% stenosis in its midportion axial image 266 Heavy calcification right popliteal artery with 90% stenosis axial image 353 Heavy calcification anterior tibial posterior tibial main continuation trunk on the right Occlusion of the proximal right anterior tibial artery, occlusion of the main continuation trunk and occlusion of the right posterior tibial artery in their mid and distal portions Impression: 90% stenosis right popliteal artery Severe calcification trifurcation arteries below the knee, occlusion of the anterior tibial and main continuation trunk and posterior tibial arteries on the right in the mid to distal portions
--- NOTE | 2025-06-10 13:26 | XR_ITS ---
Examination: Foot, right, 3 views Technique: AP, oblique, lateral views foot, 3 views Date and time of exam: June 10, 2025, 1344 hrs. Indications: Redness pain and swelling and discoloration this week Findings: Severe osteopenia Soft tissue vascular calcification No jose carlos cortical bone destruction No foreign body Impression: Severe osteopenia No jose carlos cortical bone destruction
[2025-06-10] MEDS: RINGERS LACTATED 500 ML 500 ML IV (13:34)
[2025-06-10 13:53] LABS: Basophils # (Auto) 0.1 Thou/mm3 (0.0-0.2); Basophils % (Auto) 1 % (0-2.5); Eosinophils # (Auto) 0.5 Thou/mm3 (0.0-0.5); Eosinophils % (Auto) 7 % (0-10); Hematocrit 30.1 % (41.0-53.0); Hemoglobin 9.9 g/dL (13.5-16.0); Immature Granulocytes Auto 0.02 Thou/mm3 (0.00-0.00); Lymphocytes # (Auto) 0.8 Thou/mm3 (1.0-4.8); Lymphocytes % (Auto) 12 % (10-50); Mean Corpuscular HGB Conc 32.9 g/dl (31.0-37.0); Mean Corpuscular Hemoglobin 34.7 pg (25.0-35.0); Mean Corpuscular Volume 106 fL (80-100); Monocytes # (Auto) 0.8 Thou/mm3 (0.0-0.8); Monocytes % (Auto) 12 % (0-12); Neutrophils # (Auto) 4.6 Thou/mm3 (1.8-7.7); Neutrophils % (Auto) 69 % (37-80); Nucleated Red Blood Cell # 0.00 Thou/mm3 (0.00-0.00); Nucleated Red Blood Cell % 0 /100 WBC (0); Platelet Count 254 Thou/mm3 (140-440); RDW Standard Deviation 56.5 fL (35.1-43.9); Red Blood Count 2.85 Miln/mm3 (4.50-5.90); White Blood Count 6.7 Thou/mm3 (3.8-10.6)
[2025-06-10 14:01] LABS: INR 1.0 (0.9-1.3); Prothrombin Time 10.5 Seconds (9.0-12.2)
[2025-06-10 14:21] LABS: Alanine Aminotransferase 506 U/L (10-49); Albumin, Serum 4.8 gm/dL (3.4-4.8); Albumin/Globulin Ratio 1.3 (1.2-2.2); Alkaline Phosphatase 245 U/L (46-116); Anion Gap 11 (7-16); Aspartate Amino Transferase 402 U/L (0-34); BUN/Creatinine Ratio 3 Ratio (12-20); Bilirubin,Total 0.5 mg/dL (0.3-1.2); Blood Urea Nitrogen 23 mg/dL (9-23); C-Reactive Protein 1.8 mg/dL (0.0-0.9); Calcium 9.0 mg/dL (8.3-10.6); Calcium (Corrected) 9.0 mg/dL (8.5-10.1); Carbon Dioxide 32.7 mMol/L (20.0-31.0); Chloride 92 mMol/L (98-107); Creatinine (Component) 7.8 mg/dL (0.6-1.3); Estimated Creatinine Clearance 9.4 mL/min (>60); Globulin 3.6 gm/dL (2.3-3.5); Glucose 173 mg/dL (74-106); Osmolality,Calculated 279 (275-295); Potassium 4.2 mMol/L (3.4-5.1); Sodium 136 mMol/L (136-145); Total Protein 8.4 gm/dL (5.7-8.2); eGFR 7 See Note
[2025-06-10 14:40] LABS: Sed Rate (ESR) 69 mm/hr (0-20)
[2025-06-10] MEDS: fentaNYL CIT INJ 50 mCg/ML AMP 2ML IVP (17:22)
--- NOTE | 2025-06-10 17:34 | PC.CC ---
Addendum entered by Jennifer Ashley RN 06/10/25 17:52: 1749: canceled transfer request with [facility] and [facility]. f/u information updated in the pt's discharge packet, Dr. Crooks made aware. Original Note: 1740: Dr. Crooks discussed case with Dr. Diez. He rec: pt f/u with him next week as outpatient. [address] [place] [address] . [place] office [phone] 1733: Spoke to [facility] with [facility], transfer initiated. 1728: Initiated transfer request to Stormy ibarra/ [facility]. She spoke to Dr. Crooks 1718: sent clinicals to [facility]. 1710: transfer initiated with Valentin Maria RN will reach out to Dr. Kemp - Vascular surgeon 1706: Called lauren Coello 1705: clinicals sent to [facility]. imaging sent to [facility], [facility]. 1700: received call from Dr. Crooks for transfer request for vascular surgery, 90% stenosis of the popliteal artery right lower ext.
[2025-06-10 17:56] LABS: Hepatitis A Antibody IgM Non Reactive (Non React); Hepatitis B Core Antibody IgM Non Reactive (Non React); Hepatitis B Surface Antigen Non Reactive (Non React); Hepatitis C Antibody Non Reactive (Non React)
== END 2025-06-10 18:59 | disposition home or self-care (01) ==
PROVIDERS: Emergency Provider Emergency Medicine; PCP Family Medicine
DX: E11.51 Type 2 diabetes mellitus with diabetic peripheral angiopathy without gangrene (principal); I70.201 Unspecified atherosclerosis of native arteries of extremities, right leg; R74.01 Elevation of levels of liver transaminase levels; I12.0 Hypertensive chronic kidney disease with stage 5 chronic kidney disease or end stage renal disease; I25.2 Old myocardial infarction; N18.6 End stage renal disease; Z99.2 Dependence on renal dialysis
CPT/HCPCS: 36415; 73630; 73706; 80053; 80074; 85025; 85610; 85652; 86140; 96361; 96374; 99284; A4649; J3010; J7120; Q9967